=== PATIENT | male | born 1990 | race Caucasian/White ===

== ENCOUNTER 2016-10-07 16:54 | Emergency (ER) | payer OTHER ==
[~2016-10-07 16:54] MED LIST: EXCEDRIN EXTRA1 EACH PO; PRILOSEC OTC20 MG PO; ZONEGRAN100 MG PO
== END 2016-10-07 21:40 | disposition home or self-care (01) ==
LOC: ER1 16:54
DX: S93.492A Sprain of other ligament of left ankle, initial encounter (principal); F17.210 Nicotine dependence, cigarettes, uncomplicated; Z88.5 Allergy status to narcotic agent; Y93.61 Activity, american tackle football; Y99.8 Other external cause status
CPT/HCPCS: 73590; 73610; 73630; 99283

== ENCOUNTER 2016-12-14 16:02 | Emergency (ER) | payer OTHER ==
[2016-12-14 18:23] LABS: HEMOGLOBIN 13.5 gm/dl (14.0-17.5); RED BLOOD COUNT 4.27 M/UL (4.20-5.50); WHITE BLOOD COUNT 14.7 K/UL (4.5-11.0)
[2016-12-14 18:52] LABS: BUN/CREATININE RATIO 10 (0-10)
== END 2016-12-15 00:50 | disposition home or self-care (01) ==
LOC: ER1 16:02
PROVIDERS: Specialist/Technologist Athletic Trainer
DX: S43.015A Anterior dislocation of left humerus, initial encounter (principal); Z88.5 Allergy status to narcotic agent; X58.XXXA Exposure to other specified factors, initial encounter
CPT/HCPCS: 23620; 73020; 73030; 80053; 85025; 85610; 85730; 96372; 99283; J2250; J2550; J7030

== ENCOUNTER → 2021-02-21 | Outpatient (CLI) | payer OTHER ==
[~2021-02-21] MED LIST changes: +BACTRIM DS TAB1 EACH PO; +IBUPROFEN600 MG PO; +KEFLEX CAP 500500 MG PO
== END ==
LOC: KOH-I 14:38
DX: M25.512 Pain in left shoulder (principal)
CPT/HCPCS: 73030